=== PATIENT | female | born 1960 | race Caucasian/White ===

== ENCOUNTER 2017-01-15 14:51 | Emergency (ER) | payer BC ==
[~2017-01-15] VITALS: Ht 160 cm; Wt 56.5 kg
[2017-01-15 14:53] VITALS: Ht 160 cm; Wt 56.5 kg
[2017-01-15] MEDS ORDERED: KENC1 TOP (14:57)
[2017-01-15] MEDS ORDERED: HC1C30 TOP (14:57)
--- NOTE | 2017-01-15 15:00 | ERD ---
ER Documentation Chief Complaint Date/Time DATE: 01/15/17 TIME: 14:59 Chief Complaint RASH ON NECK X4 DAYS HPI Patient is a 56-year-old female who has an itchy rash on the left side of her neck for the past 3 days. She has had this rash in the past. She has tried to put the cream on it [place] from [place] but it is not helping. She denies any swelling of her lips or tongue or difficulty breathing. She works in the kitchen and is not sure if maybe that he irritated her skin. Denies any fever. ROS All systems reviewed and are negative except as per history of present illness. Medications Home Meds Active Scripts Hydrocortisone* Topical (Hydrocortisone* Topical) 1%-28.35 Gm Cream..g., 1 APPLIC TOP BID for 7 Days, TUB Prov:CHRISTIANO PRINGLE PA-C 01/15/17 Triamcinolone Acetonide (Triamcinolone Acetonide) 0.1% - 15 Gm Cream.gm., 1 APPLIC TOP BID, #1 TUB Prov:CHRISTIANO PRINGLE PA-C 01/15/17 Allergies Allergies: Coded Allergies: No Known Allergy (Unverified , 01/15/17) FmHx Family History: No diabetes Physical Exam Vitals Vital Signs Date Time Temp Pulse Resp B/P Pulse Ox O2 Delivery O2 Flow Rate FiO2 01/15/17 14:53 97.7 58 16 160/83 97 Physical Exam Const: [] Head: Atraumatic Eyes: Normal Conjunctiva ENT: Normal External Ears, Nose and Mouth. Neck: Full range of motion..~ No meningismus. Resp: Clear to auscultation bilaterally Cardio: Regular rate and rhythm, no murmurs Abd: Soft, non tender, non distended. Normal bowel sounds Skin: Hive-like rash on left side of neck, blanchable Procedures/MDM Patient has an allergic type rash in the left side of her neck for 3 days. She has had this before. No evidence of respiratory distress or anaphylaxis. I gave her prescription for hydrocortisone cream. Recommended this patient follow up with her primary care doctor within 48 hours or return to the emergency room for any worsening of symptoms. However this time I do believe there is suitable for outpatient management. I answered all their questions and they agreed with the plan and were discharged home. Departure Diagnosis: Primary Impression: Rash Condition: Stable Patient Instructions: Self-Care for Skin Rashes Additional Instructions: Call your primary care doctor TOMORROW for an appointment during the next 1-2 days.See the doctor sooner or return here if your condition worsens before your appointment time. CHRISTIANO PRINGLE PA-C Jan 15, 2017 15:00
== END 2017-01-15 15:00 | disposition home or self-care (01) ==
LOC: E/R 14:51
DX: R21 Rash and other nonspecific skin eruption (principal)
CPT/HCPCS: 99284